=== PATIENT | female | born 1965 | race Two or more races ===

== ENCOUNTER → 2024-05-10 | Outpatient (CLI) | payer MEDICARE, MEDICAID, SELFPAY ==
[2024-05-10 11:31] LABS: Basophils # (Auto) 0.1 Thou/mm3 (0.0-0.2); Basophils % (Auto) 2 % (0-2.5); Eosinophils # (Auto) 0.1 Thou/mm3 (0.0-0.5); Eosinophils % (Auto) 3 % (0-10); Hematocrit 40.2 % (36.0-46.0); Hemoglobin 13.4 g/dL (12.0-16.0); Immature Granulocytes % (Auto) 0 % (0-0); Immature Granulocytes Auto 0.01 Thou/mm3 (0.00-0.00); Lymphocytes # (Auto) 1.6 Thou/mm3 (1.0-4.8); Lymphocytes % (Auto) 64 % (10-50); Mean Corpuscular HGB Conc 33.3 g/dl (31.0-37.0); Mean Corpuscular Hemoglobin 33.5 pg (25.0-35.0); Mean Corpuscular Volume 101 fL (80-100); Monocytes # (Auto) 0.3 Thou/mm3 (0.0-0.8); Monocytes % (Auto) 14 % (0-12); Neutrophils # (Auto) 0.4 Thou/mm3 (1.8-7.7); Neutrophils % (Auto) 17 % (37-80); Nucleated Red Blood Cell % 0 /100 WBC (0)
[2024-05-10 11:36] LABS: Platelet Count 60 Thou/mm3 (140-440); White Blood Count 2.5 Thou/mm3 (3.6-11.0)
[2024-05-10 12:09] LABS: Alanine Aminotransferase < 7 U/L (10-49); Albumin, Serum 3.2 gm/dL (3.5-5.0); Alkaline Phosphatase 93 U/L (46-116); Anion Gap 5 (7-16); Aspartate Amino Transferase 50 U/L (0-34); BUN/Creatinine Ratio 19 Ratio (12-20); Bilirubin,Direct < 0.1 mg/dL (0.0-0.3); Bilirubin,Total 0.2 mg/dL (0.3-1.2); Blood Urea Nitrogen 13 mg/dL (9-23); Calcium 8.5 mg/dL (8.3-10.6); Carbon Dioxide 31.6 mMol/L (20.0-31.0); Cardiac Risk Estimate 2.2 RATIO (3.7-5.6); Chloride 101 mMol/L (98-107); Cholesterol 149 mg/dL (132-200); Creatinine (Component) 0.7 mg/dL (0.6-1.3); Free T4 (Free Thyroxine) 0.94 ng/dL (0.89-1.76); Glucose 82 mg/dL (74-106); HDL Cholesterol 68 mg/dL (40-60); LDL Cholesterol,Calculated 60 mg/dL (0-130); Osmolality,Calculated 274 (275-295); Sodium 138 mMol/L (136-145); Thyroid Stimulating Hormone 3.28 uIU/mL (0.55-4.78); Total Protein 6.5 gm/dL (5.7-8.2); Triglycerides 104 mg/dL (30-150); eGFR > 60 See Note
[2024-05-10 12:32] LABS: Vitamin B12 884 pg/mL (211-911); Vitamin D 25 Hydroxy Total 38.8 ng/mL (7.3-40.2)
[2024-05-10 15:16] LABS: Slide Review Platelets confirmed
[2024-05-17 06:59] LABS: Valporic Acid (Depak)* 112.9 mg/L (50.0-100.0)
== END | disposition home or self-care (01) ==
LOC: COPL 10:09
PROVIDERS: PCP Internal Medicine Hematology & Oncology; Referring Provider Internal Medicine Cardiovascular Disease; Visit Provider Internal Medicine Cardiovascular Disease
DX: I10 Essential (primary) hypertension (principal); E78.5 Hyperlipidemia, unspecified; E07.9 Disorder of thyroid, unspecified
CPT/HCPCS: 36415; 80048; 80061; 80076; 80164; 82306; 82607; 84439; 84443; 85025

== ENCOUNTER 2024-08-23 21:14 | Emergency (ER) | payer MEDICARE, MEDICAID, SELFPAY ==
[2024-08-23 22:16] VITALS: BP 137/71; PULSE 57; RESP 16; TEMP 37.4; O2SAT 97
--- NOTE | 2024-08-23 23:12 | PD.EDRME ---
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 She has been ill for over a week. She was given Cipro by her primary care physician for the cough and was told if the cough was not better to come to the ER. I have greeted and performed a focused initial assessment of this patient. A comprehensive ED assessment and evaluation of the patient, analysis of all test results, and completion of the medical decision making process will be conducted by additional ED providers.
--- NOTE | 2024-08-23 23:13 | XR_ITS ---
Examination: AP chest single view TECHNIQUE: AP portable semiupright chest single view August 23, 2024 11:24 PM COMPARISON: February 22, 2019 INDICATIONS: Coughing sore throat one week. FINDINGS: Minimal opacity left base obscuring detail left hemidiaphragm Right lung clear Normal heart size IMPRESSION: Minimal left base pneumonia
[2024-08-23] MEDS: ALBUTEROL/IPRATROPIUM (Duoneb) RT SOL 3 ML NEBU INH (23:43)
[2024-08-23 23:45] VITALS: PULSE 71; RESP 19; O2SAT 99
[2024-08-24 00:51] LABS: Lactate (Lactic Acid) 1.4 mMol/L (0.4-2.0)
[2024-08-24 01:04] LABS: Basophils % (Auto) 0 % (0-2.5); Eosinophils % (Auto) 0 % (0-10); Hematocrit 36.1 % (36.0-46.0); Hemoglobin 12.8 g/dL (12.0-16.0); Immature Granulocytes % (Auto) 1 % (0-0); Immature Granulocytes Auto 0.04 Thou/mm3 (0.00-0.00); Lymphocytes # (Auto) 2.2 Thou/mm3 (1.0-4.8); Lymphocytes % (Auto) 51 % (10-50); Mean Corpuscular HGB Conc 35.5 g/dl (31.0-37.0); Mean Corpuscular Hemoglobin 34.2 pg (25.0-35.0); Mean Corpuscular Volume 97 fL (80-100); Monocytes # (Auto) 0.2 Thou/mm3 (0.0-0.8); Monocytes % (Auto) 5 % (0-12); Neutrophils # (Auto) 1.8 Thou/mm3 (1.8-7.7); Neutrophils % (Auto) 43 % (37-80); Nucleated Red Blood Cell % 0 /100 WBC (0); RDW Standard Deviation 57.8 fL (36.4-46.3); Red Blood Count 3.74 Miln/mm3 (4.00-5.20); White Blood Count 4.2 Thou/mm3 (3.6-11.0)
[2024-08-24 01:07] LABS: Platelet Count < 5 Thou/mm3 (140-440)
[2024-08-24 01:15] LABS: Path Review Blood Smear Sent to Pathologist
[2024-08-24 01:24] LABS: Alanine Aminotransferase < 7 U/L (10-49); Alkaline Phosphatase 73 U/L (46-116); Anion Gap 8 (7-16); BUN/Creatinine Ratio 18 Ratio (12-20); Bilirubin,Total 0.3 mg/dL (0.3-1.2); Blood Urea Nitrogen 16 mg/dL (9-23); C-Reactive Protein 4.2 mg/dL (0.0-0.9); Calcium 8.1 mg/dL (8.3-10.6); Calcium (Corrected) 8.9 mg/dL (8.5-10.1); Carbon Dioxide 28.6 mMol/L (20.0-31.0); Chloride 106 mMol/L (98-107); Creatinine (Component) 0.9 mg/dL (0.6-1.3); Globulin 3.1 gm/dL (2.3-3.5); Glucose 100 mg/dL (74-106); Osmolality,Calculated 286 (275-295); Potassium 4.2 mMol/L (3.4-5.1); Procalcitonin 0.15 ng/ml (0.0-0.49); Sodium 143 mMol/L (136-145); Total Protein 6.1 gm/dL (5.7-8.2); eGFR > 60 See Note
[2024-08-24 02:01] LABS: B-Type Natriuretic Peptide 55 pg/mL (0-100)
--- NOTE | 2024-08-24 02:43 | PD.EDURI ---
Upper Respiratory Inf. 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 She has been ill for over a week. She was given Cipro by her primary care physician for the cough and was told if the cough was not better to come to the ER. I have greeted and performed a focused initial assessment of this patient. A comprehensive ED assessment and evaluation of the patient, analysis of all test results, and completion of the medical decision making process will be conducted by additional ED providers. Related Data Home Medications ?Medication ?Instructions ?Recorded ?Confirmed atorvastatin 10 mg tablet 10 mg PO QDAY 02/12/22 02/12/22 cholecalciferol (vitamin D3) 50 6,000 unit PO QDAY 02/12/22 02/12/22 mcg (2,000 unit) tablet (Vitamin D3) docusate sodium 250 mg capsule 250 mg PO BID 02/12/22 02/12/22 furosemide 20 mg tablet 20 mg PO 2 X WEEKLY 02/12/22 02/12/22 potassium chloride 8 mEq 8 meq PO QDAY 02/12/22 02/12/22 tablet,extended release (Klor-Con) theophylline 400 mg 200 mg PO QDAY 02/12/22 02/12/22 tablet,extended release 24 hr triamcinolone acetonide 0.1 % 1 applic topical QDAY PRN prn 02/12/22 02/12/22 topical cream Previous Rx's ?Medication ?Instructions ?Recorded oseltamivir 75 mg capsule (Tamiflu) 75 mg PO Q12H 5 days #10 caps 08/24/24 Allergies Allergy/AdvReac Type Severity Reaction Status Date / Time No Known Allergies Allergy Verified 02/12/22 09:55 Course Course Course Narrative: COVID swab negative, influenza A/ Orders Category Date Time Status Bedside COVID-19 Antigen Test NOW Care 08/23/24 23:13 Active Bedside Influenza A&B Antigen Test NOW Care 08/23/24 23:13 Completed XR chest 1V Stat Exams 08/23/24 23:13 Completed BNP [B-Type Natriuretic Peptide] Stat Lab 08/23/24 23:14 Completed Blood Culture (Lab) Stat Lab 08/23/24 23:15 Received CBC Stat Lab 08/23/24 23:14 Completed CMP [Comprehensive Metabolic Panel] Stat Lab 08/23/24 23:14 Completed CRP [C-Reactive Protein] Stat Lab 08/23/24 23:14 Completed Lactic Acid [Lactate (Lactic Acid)] Stat Lab 08/23/24 23:15 Completed Path Review Blood Smear Stat Lab 08/24/24 00:30 Completed Procalcitonin Stat Lab 08/24/24 00:30 Completed Albuterol/Ipratr Rt Merly [Duoneb Rt Merly] Med 08/23/24 23:13 Discontinued 3 ml INH X1 ONE Vital Signs Vital signs: Vital Signs Temperature 99.3 F 08/23/24 22:16 Pulse Rate 57 L 08/23/24 22:16 Respiratory Rate 16 08/23/24 22:16 Blood Pressure 137/71 H 08/23/24 22:16 Pulse Oximetry (%) 97 08/23/24 22:16 Oxygen Delivery Method Room Air 08/23/24 22:16 Upper Respiratory Infection MDM Narrative MDM Narrative:: Chest x-ray revealed a left lower lobe pneumonia with positive influenza A/B. COVID is negative. Medications / Prescriptions Medication administrations:: Medication Administration History Discontinued Medications Albuterol/Ipratropium (Albuterol/Ipratropium (Duoneb) Rt Merly 3 Ml Nebu) 3 ml INH X1 ONE Stop: 08/23/24 23:14 Last Admin: 08/23/24 23:43 Dose: 3 ml Documented By: Discharge Plan Plan Patient Disposition: HOME (Self Care) Discharge Disposition comment: Stable Prescriptions/Referrals Prescriptions/Med Rec: New oseltamivir [Tamiflu] 75 mg capsule 75 mg PO Q12H 5 Days Qty: 10 0RF No Action atorvastatin 10 mg tablet 10 mg PO QDAY theophylline 400 mg tablet extended release 24 hr 200 mg PO QDAY Patient Comments: TAKE 1/2 TABLET BY MOUTH EVERY DAY triamcinolone acetonide 0.1 % cream 1 applic TOPICAL QDAY PRN (Reason: prn) Patient Comments: APPLY 1 APPLICATION TOPICALLY TO AFFECTED AREA DAILY NEEDED potassium chloride [Klor-Con 8] 8 mEq Tablet Extended Release 8 meq PO QDAY furosemide 20 mg Tablet 20 mg PO 2 X WEEKLY Rx Instructions: FRIDAY AND FRIDAY. docusate sodium 250 mg Capsule 250 mg PO BID cholecalciferol (vitamin D3) [Vitamin D3] 50 mcg (2,000 unit) Tablet 6,000 unit PO QDAY Referrals: Emil White [Primary Care Provider] - In 1 week Problem List Clinical Impression: Influenza A with pneumonia, Thrombocytopenia Patient/Caregiver Discharge Instructions Education Materials: ED Influenza (Adult), ED Pneumonia (Adult) Additional Instructions: Give the antiviral medication, Tamiflu as directed, twice daily for 5 days. Follow-up with your primary care physician for further workup and evaluation of the low platelet count (thrombocytopenia). This appears to be a chronic condition that began in June 2023 and has progressively become much worse. Follow-up with your primary care physician in 24 to 48 hours. Return to the ED for any new or worsening symptoms. Print Language: Syriac Stand Alone Forms: Lien Award Info., Patient Portal Info Letter PA/TERESA Supervising Physician PA/TERESA Supervising Physician: Dr. Galvez
[2024-08-24 02:57] VITALS: BP 142/67; PULSE 89; RESP 18; TEMP 36.7; O2SAT 99
== END 2024-08-24 02:58 | disposition home or self-care (01) ==
PROVIDERS: Physician Assistant; Emergency Provider Emergency Medicine; PCP Internal Medicine Hematology & Oncology
DX: J10.00 Influenza due to other identified influenza virus with unspecified type of pneumonia (principal); D69.6 Thrombocytopenia, unspecified
CPT/HCPCS: 36415; 71045; 80053; 83605; 83880; 84145; 85025; 86140; 87040; 87400; 87811; 94640; 99283; A9270